=== PATIENT | female | born 1945 | race Caucasian/White ===

== ENCOUNTER → 2018-03-28 | Outpatient (CLI) | payer BC | END | disposition home or self-care (01) | LOC: LAB 08:00 | DX: Z01.818 Encounter for other preprocedural examination (principal) | CPT/HCPCS: 86850; 86900; 86901; 87081 ==

== ENCOUNTER 2018-04-07 06:47 | Inpatient (IN) | payer BC, MEDICARE, OTHER ==
[2018-04-07] MEDS: CLINDAMYCIN 600 MG/D5W (PMX) 50 ML IVPB (06:00)
[2018-04-07] MEDS ORDERED: POLYMYXIN B 500000 UNIT INJ (06:48)
[2018-04-07] MEDS ORDERED: BACITRACIN 50000 UNITS INJ (06:49)
[2018-04-07] MEDS: LACTATED RINGER'S 1,000 ML IV* (07:19)
[2018-04-07] MEDS ORDERED: NALOXONE (0.4 MG/ML) INJ IV ×2 (07:30→09:00)
[2018-04-07] MEDS ORDERED: NA PHOSPHATE/BIPHOS 133 ML ENEMA PR (07:30)
[2018-04-07] MEDS ORDERED: DIPHENHYDRAMINE 50 MG INJ IV ×3 (07:30→09:00)
[2018-04-07] MEDS ORDERED: SENNA/DOCUSATE NA (8.6MG/50MG) TAB PO (07:30)
[2018-04-07] MEDS ORDERED: NACL 0.9% 3 ML SYG IV (07:30)
[2018-04-07] MEDS ORDERED: BISACODYL 10 MG SUPP PR (07:30)
[2018-04-07] MEDS ORDERED: BETHANECHOL 25 MG TAB PO (07:30)
[2018-04-07] MEDS ORDERED: oxyCODONE 5 MG TAB PO ×2 (07:30)
[2018-04-07] MEDS ORDERED: MAGNESIUM HYDROXIDE 30ML CUP PO (07:30)
[2018-04-07] MEDS: TRANEXAMIC ACID 1,000 MG in NS 100 ML PRE-OP X1 IVPB ×2 (07:52→08:38)
[2018-04-07] MEDS ORDERED: CEFAZOLIN 1 GM INJ (07:57)
[2018-04-07] MEDS ORDERED: PROPOFOL 20 ML (07:57)
[2018-04-07] MEDS ORDERED: ROCURONIUM 50 MG INJ (07:57)
[2018-04-07] MEDS ORDERED: MIDAZOLAM 1 MG/ML 2 ML INJ (07:58)
[2018-04-07] MEDS ORDERED: FENTAnyl 50 MCG/ML VIAL (07:58)
[2018-04-07] MEDS ORDERED: PHENYLephrine (100 MCG/ML) 5ML SYG ×2 (08:14→08:44)
[2018-04-07] MEDS ORDERED: ROPIVACAINE 0.2% 20 ML VIAL (08:20)
[2018-04-07] MEDS ORDERED: ONDANSETRON 4 MG INJ (08:23)
[2018-04-07] MEDS ORDERED: DEXAMETHASONE 4 MG/ML 1 ML INJ (08:23)
[2018-04-07] MEDS ORDERED: METOCLOPRAMIDE 10 MG INJ (08:23)
[2018-04-07] MEDS ORDERED: FAMOTIDINE 20 MG INJ (08:32)
[2018-04-07] MEDS: BACITRACIN 50000 UNITS INJ IRR (08:33)
[2018-04-07] MEDS: POLYMYXIN B 500000 UNIT INJ IRR (08:35)
[2018-04-07] MEDS ORDERED: EPHEDrine SULFATE 50 MG/5 ML SYG (08:44)
[2018-04-07] MEDS ORDERED: NALBUPHINE HCL (10 MG/1 ML) INJ IV (09:00)
[2018-04-07] MEDS ORDERED: METOCLOPRAMIDE 10 MG INJ IV (09:00)
[2018-04-07] MEDS: TRANEXAMIC ACID 1,000 MG in NS 100 ML INTRA-OP X1 IVPB (09:00)
[2018-04-07] MEDS ORDERED: morphine 2 MG INJ IV ×2 (09:00)
[2018-04-07] MEDS ORDERED: LABETALOL HCL 20MG INJ IV (09:00)
[2018-04-07] MEDS ORDERED: hydrALAzine 20 MG INJ IV (09:00)
[2018-04-07] MEDS ORDERED: HYDROmorphONE 0.5 MG/0.5 ML SYG IV ×2 (09:00)
[2018-04-07] MEDS ORDERED: ALBUMIN HUMAN 5% 250 ML IV (09:00)
[2018-04-07] MEDS ORDERED: HYDROmorphONE 1 MG/5 ML IV SYRINGE IV ×3 (09:00)
[2018-04-07] MEDS ORDERED: MEPERIDINE 25 MG INJ IV (09:00)
[2018-04-07] MEDS ORDERED: FENTAnyl 50 MCG/ML VIAL IV ×3 (09:00)
[2018-04-07] MEDS ORDERED: HYDROCODONE/APAP (5/325) TAB PO (09:00)
[2018-04-07] MEDS ORDERED: EPHEDrine SULFATE 50 MG/5 ML SYG IV (09:00)
[2018-04-07] MEDS ORDERED: ONDANSETRON 4 MG INJ IV ×2 (09:00)
[2018-04-07] MEDS ORDERED: OXYCODONE/ACETAMINOPHEN (5/325) TAB PO ×2 (09:00)
[2018-04-07] MEDS ORDERED: HETASTARCH 6% NACL 500 ML (09:03)
[2018-04-07] MEDS ORDERED: ALBUMIN HUMAN 5% 500 ML (09:03)
[2018-04-07] MEDS ORDERED: NEOSTIGMINE 3 MG/3 ML SYRINGE (09:15)
[2018-04-07] MEDS ORDERED: GLYCOPYRROLATE 0.4 MG INJ (09:15)
[2018-04-07] MEDS: ONDANSETRON 4 MG INJ IV ×3 (10:04→19:30)
[2018-04-07] MEDS: GABAPENTIN 300 MG CAP PO ×3 (10:04→22:46)
[2018-04-07] MEDS: ASPIRIN (EC) 325 MG TAB PO (10:04)
[2018-04-07] MEDS: DOCUSATE SODIUM 100 MG CAP PO (10:04)
[2018-04-07] MEDS: SOD CHLORIDE 0.9% 1,000 ML IV ×2 (12:58→20:00)
[2018-04-07] MEDS: VANCOMYCIN 1 GM (PMX) 250 ML IVPB (17:38)
[2018-04-08] MEDS: ZOLPIDEM 5 MG TAB PO (00:10)
[2018-04-08] MEDS: ONDANSETRON 4 MG INJ IV (01:30)
[2018-04-08 05:23] LABS: ADD MAN DIFF? NO
[2018-04-08 05:29] LABS: WHITE BLOOD COUNT 7.8 10^3/ul (4.8-10.8)
[2018-04-08 05:29] LABS: ABNORMAL IP MESSAGE 1; BASOPHILS % 0.3 % (0.0-2.0); EOSINOPHILS % 0.1 % (0.0-7.0); HEMATOCRIT 27.1 % (37.0-47.0); HEMOGLOBIN 8.7 g/dl (12.0-16.0); LYMPHOCYTES # 0.6 10^3/ul (0.8-2.9); LYMPHOCYTES % 7.5 % (15.0-51.0); MEAN CORPUSCULAR HEMOGLOBIN 28.7 pg (29.0-33.0); MEAN CORPUSCULAR HGB CONC 32.1 g/dl (32.0-37.0); MEAN CORPUSCULAR VOLUME 89.4 fl (82.0-101.0); MEAN PLATELET VOLUME 9.9 fl (7.4-10.4); MONOCYTE # 0.6 10^3/ul (0.3-0.9); NEUTROPHIL # 6.6 10^3/ul (1.6-7.5); NEUTROPHILS % 84.6 % (39.0-77.0); PLATELET COUNT 194 10^3/UL (140-415); RED BLOOD COUNT 3.03 10^6/ul (4.20-5.40); RED CELL DISTRIBUTION WIDTH 13.7 % (11.5-14.5)
[2018-04-08 05:40] LABS: POSITIVE DIFF @See below
[2018-04-08] MEDS: VANCOMYCIN 1 GM (PMX) 250 ML IVPB (05:53)
[2018-04-08] MEDS: PANTOPRAZOLE (EC) 40 MG TAB PO (05:55)
[2018-04-08 06:16] LABS: CHOLESTEROL 102 mg/dl (100-200); HDL CHOLESTEROL 49 mg/dl (33-92); LDL CHOLESTEROL,CALCULATED 41 mg/dl; MAGNESIUM 1.7 mg/dl (1.7-2.5); TRIGLYCERIDES 59 mg/dl (0-149)
[2018-04-08 06:16] LABS: PHOSPHORUS 2.7 mg/dl (2.5-4.9)
[2018-04-08 06:24] LABS: ANION GAP 6 (5-13); BLOOD UREA NITROGEN 12 mg/dl (7-20); CALCIUM 7.9 mg/dl (8.4-10.2); CARBON DIOXIDE 26 mmol/L (21-31); CHLORIDE 109 mmol/L (97-110); CREATININE 0.71 mg/dl (0.44-1.00); GLUCOSE 104 mg/dl (70-220); POTASSIUM 3.8 mmol/L (3.5-5.1); SODIUM 141 mmol/L (135-144)
[2018-04-08] MEDS: SOD CHLORIDE 0.9% 1,000 ML IV (08:30)
[2018-04-08] MEDS: ACETAMINOPHEN 500 MG TAB PO (08:57)
[2018-04-08] MEDS: ASPIRIN (EC) 325 MG TAB PO (08:57)
[2018-04-08] MEDS: FERROUS FUMARATE (SR) TAB PO (08:57)
[2018-04-08] MEDS: DOCUSATE SODIUM 100 MG CAP PO (08:58)
[2018-04-08] MEDS: GABAPENTIN 300 MG CAP PO ×2 (08:58→13:33)
[2018-04-08] MEDS: CELECOXIB 200 MG CAP PO (08:58)
[2018-04-08] MEDS: oxyCODONE 5 MG TAB PO (09:41)
== END 2018-04-08 16:40 | disposition home health service (06) | DRG 470 ==
LOC: REC 06:47 → MS1 11:17
PROC: 0SRB04A Replacement of Left Hip Joint with Ceramic on Polyethylene Synthetic Substitute, Uncemented, Open Approach (ICD-10-PCS; principal; 2018-04-07 07:30)
DX: M16.12 Unilateral primary osteoarthritis, left hip (principal); E78.5 Hyperlipidemia, unspecified; G62.9 Polyneuropathy, unspecified; D64.9 Anemia, unspecified
CPT/HCPCS: 73530; 80048; 80061; 83735; 84100; 85025; 86850; 86900; 86901; 87081; 88304; 88311; 97110; 97116; 97161; 97167; 97530